=== PATIENT | male | born 1950 | race Caucasian/White ===

== ENCOUNTER → 2017-04-01 | Outpatient (CLI) | payer BC, MEDICARE ==
[~2017-04-01] MED LIST: AMLO10TA2 PO; ATOR40TA75 PO; CHLO25TA PO; ENAL10TA2 PO; FERG1TAB PO; FLAG500T PO; GLIP5TAB8 PO; HUMA100I3 SC; INSUH10VL SC; INSUNSD SC; IRON65TA PO; LEVA1TAB PO; OMEP40CA2 PO
[2017-04-01 19:19] LABS: CALCIUM LEVEL 8.5 MG/DL (8.8-10.2); CREATININE FOR GFR 2.74 MG/DL (0.70-1.30); GLOMERULAR FILTRATION RATE 24.6 (>49); POTASSIUM SERUM 4.5 MEQ/L (3.5-5.1)
== END ==
LOC: M WUC 15:50
PROVIDERS: ATTEND Psychiatry & Neurology Vascular Neurology
DX: E87.5 Hyperkalemia (principal)

== ENCOUNTER 2021-04-19 12:49 | Emergency (ER) | payer MEDICARE ==
[~2021-04-19] VITALS: Ht 172.7 cm; Wt 80.7 kg
[~2021-04-19 12:49] MED LIST changes: -AMLO10TA2 PO; +AMLO1TAB25 PO; +CHLO125TA PO; -CHLO25TA PO; +ENAL-36 PO; -ENAL10TA2 PO; -FERG1TAB PO; +FERG27TA PO; -LEVA1TAB PO; +LEVA250T13 PO; -OMEP40CA2 PO; +OMEP40CA4 PO
[2021-04-19 16:51] LABS: BASO % 0.2 % (0.0-1.0); EOS # 0.1 10^3/uL (0.0-0.5); EOS % 0.9 % (0.0-3.0); HEMATOCRIT 27.9 % (42.0-52.0); HEMOGLOBIN 9.1 g/dl (13.5-17.5); LYMPH # 0.7 10^3/uL (1.5-5.0); LYMPH % 5.8 % (24.0-44.0); MEAN CORPUSCULAR HEMOGLOBIN 33.8 pg (27.0-33.0); MEAN CORPUSCULAR HGB CONC 32.6 g/dl (32.0-36.5); MEAN CORPUSCULAR VOLUME 103.7 fl (80.0-96.0); MONO # 0.8 10^3/uL (0.0-0.8); MONO % 6.8 % (2.0-8.0); NEUTROPHILS # 10.6 10^3/uL (1.5-8.5); NEUTROPHILS % 85.9 % (36.0-66.0); PLATELET COUNT, AUTOMATED 259 10^3/uL (150-450); RED BLOOD COUNT 2.69 10^6/uL (4.30-6.10); WHITE BLOOD COUNT 12.4 10^3/uL (4.0-10.0)
[2021-04-19 17:20] LABS: ERYTHROCYTE SEDIMENTATION RATE 108 mm/hr (0-20)
[2021-04-19] MEDS ORDERED: CEPHALEXIN 500 MG CAP PO ONE (17:35)
[2021-04-19] MEDS ORDERED: CEPH500C PO (18:07)
[2021-04-19 18:25] VITALS: BP 131/56
== END 2021-04-19 18:28 | disposition home or self-care (01) ==
LOC: M ED 12:49
DX: L97.519 Non-pressure chronic ulcer of other part of right foot with unspecified severity (principal); E11.9 Type 2 diabetes mellitus without complications; I25.10 Atherosclerotic heart disease of native coronary artery without angina pectoris; I10 Essential (primary) hypertension; E78.5 Hyperlipidemia, unspecified; N18.9 Chronic kidney disease, unspecified; Z99.2 Dependence on renal dialysis; Z88.2 Allergy status to sulfonamides; Z79.899 Other long term (current) drug therapy

== ENCOUNTER → 2021-04-21 | Outpatient (REF) | payer MEDICARE ==
[~2021-04-21] MED LIST changes: +CEPH500C PO
== END ==
LOC: M LAB REF 11:36
PROVIDERS: ATTEND Podiatrist Foot & Ankle Surgery
DX: L03.031 Cellulitis of right toe (principal)

== ENCOUNTER 2022-04-12 12:17 | Inpatient (IN) | payer MEDICARE ==
[~2022-04-12] VITALS: Ht 170.2 cm; Wt 81.8 kg
[2022-04-12] MEDS ORDERED: PENT400T47 PO (12:40)
[2022-04-12] MEDS ORDERED: LEVO25TA5 PO (12:40)
[2022-04-12] MEDS ORDERED: ISOVUE-370 76% 100ML VIAL As Ordered ONE (12:40)
[2022-04-12] MEDS ORDERED: CALC1CAP31 PO (12:40)
[2022-04-12] MEDS ORDERED: SENN8.6T28 PO (12:40)
[2022-04-12] MEDS ORDERED: ASPI81TA26 PO (12:40)
[2022-04-12] MEDS ORDERED: COLA100C5 PO (12:40)
[2022-04-12] MEDS ORDERED: CLAR10CA3 PO (12:40)
[2022-04-12] MEDS ORDERED: LANTINJ4 SC ×2 (12:40)
[2022-04-12] MEDS ORDERED: LOPE-39 PO (12:40)
[2022-04-12] MEDS ORDERED: METO1TAB32 PO (12:40)
[2022-04-12] MEDS ORDERED: CALC1CAP PO (12:40)
[2022-04-12] MEDS ORDERED: CIPR500T39 PO (12:40)
[2022-04-12] MEDS ORDERED: PANT40TA29 PO (12:40)
[2022-04-12 13:12] LABS: BASO # 0.1 10^3/uL (0.0-0.2); BASO % 0.7 % (0.0-1.0); EOS # 0.3 10^3/uL (0.0-0.5); HEMATOCRIT 28.3 % (42.0-52.0); HEMOGLOBIN 9.4 g/dl (13.5-17.5); LYMPH # 1.1 10^3/uL (1.5-5.0); LYMPH % 10.1 % (24.0-44.0); MEAN CORPUSCULAR HEMOGLOBIN 34.1 pg (27.0-33.0); MEAN CORPUSCULAR HGB CONC 33.2 g/dl (32.0-36.5); MEAN CORPUSCULAR VOLUME 102.5 fl (80.0-96.0); MONO # 0.8 10^3/uL (0.0-0.8); MONO % 7.2 % (2.0-8.0); NEUTROPHILS # 8.1 10^3/uL (1.5-8.5); NEUTROPHILS % 77.5 % (36.0-66.0); PLATELET COUNT, AUTOMATED 290 10^3/uL (150-450); RED BLOOD COUNT 2.76 10^6/uL (4.30-6.10); WHITE BLOOD COUNT 10.5 10^3/uL (4.0-10.0)
[2022-04-12 13:16] LABS: INR 1.03; PROTHROMBIN TIME 13.9 SECONDS (12.7-14.5)
[2022-04-12 13:17] LABS: PARTIAL THROMBOPLASTIN TIME 34.5 SECONDS (25.9-37.0)
[2022-04-12 13:25] LABS: MB/CK RELATIVE INDEX 6.9 (< OR =4)
[2022-04-12 14:43] LABS: RSV AMPLIFICATION NEGATIVE (NEGATIVE)
[2022-04-12 16:52] LABS: APPEARANCE, BODY FLUID CLEAR (CLEAR); PERITONEAL DIALYSATE FL COLOR COLORLESS (COLORLESS); SOURCE, BODY FLUID PERITONEAL DIALYSATE
[2022-04-12 17:27] LABS: SQUAMOUS EPITHELIAL CELL URINE NONE SEEN /hpf (SMALL AMT)
[2022-04-12 17:28] LABS: BACTERIA, URINE MOD AMOUNT; HYALINE CAST, URINE NONE SEEN /lpf (0-1)
[2022-04-12] MEDS ORDERED: CIPROFLOXACIN 200 MG in IV 1 EA IV ONE (18:09)
[2022-04-12] MEDS ORDERED: DEXTROSE 50% 50 ML SYRINGE IV PRN (18:40)
[2022-04-12] MEDS ORDERED: GLUCAGON INJ 1MG VIAL SC PRN (18:40)
[2022-04-12] MEDS ORDERED: GLUCOSE 4GM CHEW TABLET PO PRN (18:40)
[2022-04-12] MEDS ORDERED: HOME MED LIST COMPLETE! XX SCH (19:20)
[2022-04-12] MEDS ORDERED: INSUHUMDS SC (19:20)
[2022-04-12] MEDS ORDERED: HYDR-3363 PO (19:20)
[2022-04-12] MEDS ORDERED: CALC667T2 PO (19:20)
[2022-04-12] MEDS: INSULIN LISPRO (NovoLOG) PER UNIT SC SCH (22:13)
[2022-04-12] MEDS: HEPARIN SOD (PORCINE) 5000UNITS/ML 1ML VIAL/SYRINGE SQ SCH (22:26)
[2022-04-12] MEDS: LEVEMIR (INSULIN DETEMIR) 1 UNITS/0.01ML SC SCH (22:26)
[2022-04-13] MEDS ORDERED: CALCIUM ACETATE 667MG GELCAP PO PRN (05:15)
[2022-04-13] MEDS: LEVOTHYROXINE 25MCG TABLET (0.025MG) PO SCH (06:00)
[2022-04-13 06:59] LABS: HEMATOCRIT 24.4 % (42.0-52.0); HEMOGLOBIN 7.8 g/dl (13.5-17.5); MEAN CORPUSCULAR HEMOGLOBIN 32.9 pg (27.0-33.0); PLATELET COUNT, AUTOMATED 242 10^3/uL (150-450); RED BLOOD COUNT 2.37 10^6/uL (4.30-6.10); WHITE BLOOD COUNT 7.9 10^3/uL (4.0-10.0)
[2022-04-13 07:32] LABS: ALBUMIN 2.1 GM/DL (3.2-5.2); CALCIUM LEVEL 8.5 MG/DL (8.8-10.2); CREATININE FOR GFR 10.4 MG/DL (0.70-1.30); GLOMERULAR FILTRATION RATE 5.2 (>42); PHOSPHORUS LEVEL 6.7 MG/DL (2.5-4.9); POTASSIUM SERUM 4.6 MEQ/L (3.5-5.1)
[2022-04-13] MEDS: INSULIN LISPRO (NovoLOG) PER UNIT SC SCH ×4 (09:52→20:27)
[2022-04-13] MEDS: ASPIRIN 81MG ENTERIC TABLET PO SCH (09:53)
[2022-04-13] MEDS: CALCIUM ACETATE 667MG GELCAP PO SCH ×3 (09:53→17:23)
[2022-04-13] MEDS: LEVEMIR (INSULIN DETEMIR) 1 UNITS/0.01ML SC SCH ×2 (09:54→20:27)
[2022-04-13] MEDS: DOCUSATE SODIUM 100MG CAPSULE PO SCH ×2 (09:55→20:26)
[2022-04-13] MEDS: SENNA 8.6 MG TAB (SENOKOT) PO SCH (09:56)
[2022-04-13] MEDS: PANTOPRAZOLE 40MG TAB (PROTONIX) PO SCH (09:56)
[2022-04-13] MEDS: LORATADINE 10 MG TAB PO SCH (09:56)
[2022-04-13] MEDS: METOPROLOL SUCC *XL* 12.5MG PER 1/2 TAB (TopROL *XL*) PO SCH (09:57)
[2022-04-13] MEDS: HEPARIN SOD (PORCINE) 5000UNITS/ML 1ML VIAL/SYRINGE SQ SCH ×2 (09:58→20:26)
[2022-04-13 11:24] VITALS: BP 116/46
[2022-04-13 15:28] VITALS: BP 120/40
[2022-04-13] MEDS ORDERED: CIPROFLOXACIN 200 MG in IV 1 EA IV SCH (18:00)
[2022-04-13 20:00] VITALS: BP_SYST 123; BP_SYST 128; BP_DIAS 58; BP_DIAS 74
[2022-04-13] MEDS ORDERED: CALCITRIOL 0.25 MCG CAP (S0169) PO SCH (21:00)
[2022-04-13] MEDS ORDERED: ATORVASTATIN 20 MG TAB PO SCH (21:00)
[2022-04-13] MEDS ORDERED: PENTOXIFYLLINE 400 MG TAB PO SCH (21:00)
[2022-04-14] VITALS: BP 128/52
[2022-04-14 04:00] VITALS: BP 126/54
[2022-04-14] MEDS: LEVOTHYROXINE 25MCG TABLET (0.025MG) PO SCH (05:47)
[2022-04-14 06:38] LABS: HEMATOCRIT 25.1 % (42.0-52.0); HEMOGLOBIN 8.2 g/dl (13.5-17.5); MEAN CORPUSCULAR HEMOGLOBIN 33.1 pg (27.0-33.0); MEAN CORPUSCULAR HGB CONC 32.7 g/dl (32.0-36.5); MEAN CORPUSCULAR VOLUME 101.2 fl (80.0-96.0); PLATELET COUNT, AUTOMATED 275 10^3/uL (150-450); RED BLOOD COUNT 2.48 10^6/uL (4.30-6.10); WHITE BLOOD COUNT 8.6 10^3/uL (4.0-10.0)
[2022-04-14 07:15] LABS: ALBUMIN 2.1 GM/DL (3.2-5.2); CALCIUM LEVEL 8.7 MG/DL (8.8-10.2); CREATININE FOR GFR 9.66 MG/DL (0.70-1.30); GLOMERULAR FILTRATION RATE 5.7 (>42); PHOSPHORUS LEVEL 6.8 MG/DL (2.5-4.9)
[2022-04-14] MEDS: DOCUSATE SODIUM 100MG CAPSULE PO SCH (09:26)
[2022-04-14 09:27] VITALS: BP 126/54
[2022-04-14] MEDS: ASPIRIN 81MG ENTERIC TABLET PO SCH (09:27)
[2022-04-14] MEDS: CALCIUM ACETATE 667MG GELCAP PO SCH ×2 (09:27→11:46)
[2022-04-14] MEDS: LORATADINE 10 MG TAB PO SCH (09:27)
[2022-04-14] MEDS: METOPROLOL SUCC *XL* 12.5MG PER 1/2 TAB (TopROL *XL*) PO SCH (09:27)
[2022-04-14] MEDS: PANTOPRAZOLE 40MG TAB (PROTONIX) PO SCH (09:28)
[2022-04-14] MEDS: HEPARIN SOD (PORCINE) 5000UNITS/ML 1ML VIAL/SYRINGE SQ SCH (09:28)
[2022-04-14] MEDS: INSULIN LISPRO (NovoLOG) PER UNIT SC SCH ×2 (09:28→11:46)
[2022-04-14] MEDS: SENNA 8.6 MG TAB (SENOKOT) PO SCH (09:28)
[2022-04-14] MEDS: LEVEMIR (INSULIN DETEMIR) 1 UNITS/0.01ML SC SCH (09:29)
[2022-04-14 09:30] VITALS: BP 146/64
== END 2022-04-14 13:56 | disposition home or self-care (01) | DRG 689 ==
LOC: M ED 12:17 → M ED INP 18:38 → ENRESERV 04-13 09:39 → M PCU 04-13 11:24
PROVIDERS: ADMIT Family Medicine; ATTEND Internal Medicine
DX: N39.0 Urinary tract infection, site not specified (principal); N18.6 End stage renal disease; I13.2 Hypertensive heart and chronic kidney disease with heart failure and with stage 5 chronic kidney disease, or end stage renal disease; I50.32 Chronic diastolic (congestive) heart failure; E11.51 Type 2 diabetes mellitus with diabetic peripheral angiopathy without gangrene; Z99.2 Dependence on renal dialysis; E03.9 Hypothyroidism, unspecified; E11.22 Type 2 diabetes mellitus with diabetic chronic kidney disease; E78.5 Hyperlipidemia, unspecified; Z79.4 Long term (current) use of insulin; Z79.899 Other long term (current) drug therapy; Z88.2 Allergy status to sulfonamides; R33.9 Retention of urine, unspecified; I25.10 Atherosclerotic heart disease of native coronary artery without angina pectoris; D50.9 Iron deficiency anemia, unspecified; I34.0 Nonrheumatic mitral (valve) insufficiency; Z86.16 Personal history of COVID-19; Z98.41 Cataract extraction status, right eye; Z98.42 Cataract extraction status, left eye; Z89.421 Acquired absence of other right toe(s); N40.0 Benign prostatic hyperplasia without lower urinary tract symptoms; Z95.2 Presence of prosthetic heart valve